=== PATIENT | male | born 1975 | race Caucasian/White ===

== ENCOUNTER 2018-05-11 23:33 | Emergency (ER) | payer OTHER ==
[~2018-05-11] VITALS: Ht 165.1 cm; Wt 79.8 kg
[~2018-05-11 23:33] MED LIST: LANTUS INSULIN SQ
[2018-05-11 23:39] VITALS: Ht 165.1 cm; Wt 79.8 kg
[2018-05-12 00:04] LABS: BASOPHIL % 0.4 % (0-2); PLATELET COUNT 208 x10^3mcL (130-400); RED CELL DISTRIBUTION WIDTH 13.1 % (11.5-14.5)
[2018-05-12 00:14] LABS: CALCIUM 8.8 mg/dL (8.5-10.1); CARBON DIOXIDE 30.8 mmol/L (21-32); CHLORIDE SERUM 102 mmol/L (98-107); CREATININE SERUM 1.1 mg/dL (0.7-1.3); GFR1 > 60 mL/min; GLUCOSE SERUM 400 mg/dL (74-106); POTASSIUM SERUM 3.9 mmol/L (3.5-5.1); SODIUM SERUM 136 mmol/L (136-145)
[2018-05-12 00:20] LABS: ALKALINE PHOSPHATASE 139 U/L (46-116); ALT/SGPT 28 U/L (16-63); AST/SGOT 22 U/L (15-37); BILIRUBIN TOTAL 0.2 mg/dL (0.20-1.00); TOTAL PROTEIN, SERUM 6.8 g/dL (6.4-8.2)
[2018-05-12 03:21] VITALS: BP 123/67
== END 2018-05-12 03:21 | disposition home or self-care (01) ==
LOC: ED 23:33
PROVIDERS: Emergency Medicine
DX: R60.0 Localized edema (principal); E11.65 Type 2 diabetes mellitus with hyperglycemia; I10 Essential (primary) hypertension; E78.00 Pure hypercholesterolemia, unspecified; Z88.0 Allergy status to penicillin
CPT/HCPCS: 82962; 83880; J1815; J1940; Q0092